=== PATIENT | female | born 1980 | race Two or more races ===

== ENCOUNTER → 2024-04-14 | Outpatient (CLI) | payer MEDICAID, SELFPAY ==
--- NOTE | 2024-04-14 16:30 | XR_ITS ---
Examination: Thyroid sonography complete TECHNIQUE: Multiple high resolution grayscale sonographic images thyroid lobes with color flow analysis Exam date and time: April 14, 2024 1628 hours COMPARISON: January 21, 2024 INDICATIONS: Thyroid sonogram January 21, 2024 lower pole left thyroid nodule 7 x 4 x 6 mm FINDINGS: Right thyroid 5.7 x 1.6 x 1.6 cm No solid nodules Left thyroid 5.2 x 1.3 x 1.2 cm Lower pole solid nodule 3 x 2 x 5 mm IMPRESSION: Small lower pole left thyroid nodule
== END | disposition home or self-care (01) ==
LOC: CDIM 16:09
PROVIDERS: PCP Nurse Practitioner Family; Referring Provider Internal Medicine Endocrinology, Diabetes & Metabolism; Visit Provider Internal Medicine Endocrinology, Diabetes & Metabolism
DX: E04.1 Nontoxic single thyroid nodule (principal)
CPT/HCPCS: 76536

== ENCOUNTER → 2024-06-06 | Outpatient (CLI) | payer MEDICAID, SELFPAY ==
--- NOTE | 2024-06-06 09:37 | XR_ITS ---
Examination: Shoulder,right, 3 views Technique: Shoulder AP internal rotation, AP external rotation, Y view shoulder, 3 views Exam date and time :June 06, 2024 1009 hours INDICATIONS: Right shoulder pain beginning one year ago FINDINGS: Calcific tendinitis Moderate narrowing glenohumeral joint No fracture or shoulder dislocation IMPRESSION: Right shoulder calcific tendinitis Moderate narrowing glenohumeral joint
== END | disposition home or self-care (01) ==
LOC: CDIM 09:21
PROVIDERS: PCP Nurse Practitioner Family; Referring Provider Nurse Practitioner Family; Visit Provider Nurse Practitioner Family
DX: M75.31 Calcific tendinitis of right shoulder (principal); M25.811 Other specified joint disorders, right shoulder
CPT/HCPCS: 73030